=== PATIENT | male | born 1995 | race Caucasian/White ===

== ENCOUNTER 2024-10-15 09:57 | Emergency (ER) | payer OTHER, SELFPAY ==
[2024-10-15 10:03] VITALS: BP 161/83; PULSE 87; TEMP 36.6; O2SAT 99; BMI 27.8
--- NOTE | 2024-10-15 10:18 | ED.SKABFB1 ---
HPI - Skin/Abscess/Foreign Bdy General Chief complaint: Skin/Abscess/Foreign Body Stated complaint: SUNBURN Time Seen by Provider: 10/15/24 10:11 Source: patient Mode of arrival: walk-in Limitations: no limitations History of Present Illness HPI narrative: The patient is coming to the ER after he was spending the whole day yesterday in the sun, came to the ER with a severe redness to the face also redness to the upper extremity The patient mentioned that he just was concerned because there was oozing from the skin on the face and that was concerning for him although he did think that this is mostly secondary to a sunburn No trauma no other concerns no fever no chills no other concerns as well Related Data Previous Rx's ?Medication ?Instructions ?Recorded prednisone 20 mg tablet 40 mg (2 x 20 mg) PO DAILY 5 days 10/15/24 #10 tabs Allergies Allergy/AdvReac Type Severity Reaction Status Date / Time No Known Drug Allergies Allergy Verified 10/15/24 10:03 Review of Systems ROS Status of ROS 10 or more systems reviewed and unremarkable except as noted in history and below PFSH PFSH Social History Little interest or pleasure in doing things: not at all Feeling down, depressed, or hopeless: not at all Exam Narrative Exam Narrative: Nurses notes and vital signs reviewed and patient is not hypoxic. General: Well-appearing and in no apparent distress. Skin: Warm, dry, no pallor noted. No rash. Head: Normocephalic, atraumatic. Neck: Supple, non-tender. Face: there is extensive redness noted on the face that is all over the face with the mild drainage of the skin and papular changes to the forehead Cardiovascular: Regular Rate and Rhythm without murmur, gallop or rub. Respiratory: No accessory muscle use or respiratory distress. Lungs are clear to auscultation, no wheezing, rales or rhonchi Chest Wall: no tenderness Back: No midline thoracic or lumbar vertebral tenderness. No CVA tenderness Musculoskeletal: normal ROM, no calf or popliteal tenderness, no lower extremity edema/swelling GI: Abdomen is soft, non-distended. Normal bowel sounds. No masses appreciated. No tenderness to palpation. No rebound, guarding, or rigidity noted. Neurological: A&O x4. No cranial nerve dysfunction observed. No truncal ataxia. Moves all extremities. Sensation intact. Psychiatric: Cooperative and interactive. Normal mood and affect. Constitutional Vital Signs, click to edit/add: Last Vital Signs Temp 98 F 10/15/24 10:03 Pulse 87 10/15/24 10:03 Resp 16 10/15/24 10:03 BP 161/83 H 10/15/24 10:03 Pulse Ox 99 10/15/24 10:03 O2 Del Method Room Air 10/15/24 10:03 Course Vital Signs Vital signs: Vital Signs Temperature 98 F 10/15/24 10:03 Pulse Rate 87 10/15/24 10:03 Respiratory Rate 16 10/15/24 10:03 Blood Pressure 161/83 H 10/15/24 10:03 Pulse Oximetry 99 10/15/24 10:03 Oxygen Delivery Method Room Air 10/15/24 10:03 Temperature 98 F 10/15/24 10:03 Pulse Rate 87 10/15/24 10:03 Respiratory Rate 16 10/15/24 10:03 Blood Pressure 161/83 H 10/15/24 10:03 Pulse Oximetry 99 10/15/24 10:03 Oxygen Delivery Method Room Air 10/15/24 10:03 MDM - Skin/Abscess/Foreign Bdy MDM Narrative Medical decision making narrative: The patient presented with mostly sunburn and possible sun allergic reaction The patient was started on prednisone for the next 5 days instructed to monitor symptoms Continue hydration The patient is to follow up with primary care physician in next 2-3 days or to return to the emergency department should any of the signs or symptoms worsen or new symptoms develop. The patient agrees with the following Diagnosis and Treatment plan and the patient will be discharged home. Discharge Plan Discharge Chief Complaint: Skin/Abscess/Foreign Body Clinical Impression: Burn from the sun Patient Disposition: Home, Self-Care Time of Disposition Decision: 10:19 Condition: Good Mode of Transportation: Private Vehicle Prescriptions / Home Meds: New prednisone 20 mg tablet 40 mg PO DAILY 5 Days Qty: 10 0RF Print Language: Swedish Instructions: Sunburn (ED), Cold Compress or Soak (ED) Additional Instructions: Please take meds with food not on empty stomach Referrals: Armain Gonzalez MD [Primary Care Provider, Family Practice] - 1 week Discharge Date/Time: 10/15/24 10:22
== END 2024-10-15 10:22 | disposition home or self-care (01) ==
PROVIDERS: Emergency Provider Emergency Medicine; PCP Family Medicine
DX: L55.9 Sunburn, unspecified (principal)
CPT/HCPCS: 99283